=== PATIENT | male | born 1995 | race African-American/Black ===

== ENCOUNTER 2023-11-11 12:26 | Emergency (ER) | payer MEDICAID ==
[~2023-11-11] VITALS: Ht 188 cm; Wt 72.0 kg
[~2023-11-11 12:26] MED LIST: CEPH500T MT; IBUP-2029 MT; T3 PO
[2023-11-11 12:29] VITALS: O2SAT 97
[2023-11-11] MEDS ORDERED: BO1 TP (13:44)
[2023-11-11 14:03] VITALS: BP 118/74; PULSE 89; RESP 18; TEMP 98.4
== END 2023-11-11 14:04 | disposition home or self-care (01) ==
LOC: ER 12:26
DX: S61.411D Laceration without foreign body of right hand, subsequent encounter (principal); Z48.00 Encounter for change or removal of nonsurgical wound dressing; X58.XXXD Exposure to other specified factors, subsequent encounter
CPT/HCPCS: 99282